=== PATIENT | male | born 1945 | race Caucasian/White ===

== ENCOUNTER → 2024-08-16 13:25 | Outpatient (REF) | payer MEDICARE, SELFPAY | LOC: MRI 13:25 | PROVIDERS: ATTENDING PHYSICIAN Physical Medicine & Rehabilitation; FAMILY PHYSICIAN Nurse Practitioner Family | DX: M54.16 Radiculopathy, lumbar region (principal); R53.1 Weakness | CPT/HCPCS: 72148 ==